=== PATIENT | male | born 1995 | race Caucasian/White ===

== ENCOUNTER 2017-08-16 16:10 | Emergency (ER) | payer MEDICAID ==
[~2017-08-16] VITALS: Ht 167.6 cm; Wt 72.3 kg
[2017-08-16 16:32] VITALS: BP 114/72
--- NOTE | 2017-08-16 16:44 | NUR ---
21/M PRESENT TO ER C/O LT BIG TOE INFECTION x 4 DAYS. AAOX4 WITH EVEN AND STEADY GAIT; LUNGS CLEAR BL; HR EVEN AND REGULAR; PT DENIES ANY FEVER, CP, SOB, OR COUGH AT THIS TIME; PATIENT STATES PAIN OF 9/10 AT THIS TIME; VSS; PATIENT POSITIONED FOR COMFORT; HOB ELEVATED; BEDRAILS UP X2; BED DOWN. ER MD MADE AWARE OF PT STATUS.
[2017-08-16] MEDS ORDERED: IBUPROFEN 800 MG TAB PO ONE (16:50)
[2017-08-16] MEDS ORDERED: LIDOCAINE 1% 500 MG/50 ML VIAL INJ ONE (16:50)
--- NOTE | 2017-08-16 17:18 | NUR ---
REMOVE PARTIAL INGROWN TOE NAIL L BIG TOE BY DANIELLE RODRIGUEZ. PT TOLERATED PROCEDURE WELL.
--- NOTE | 2017-08-16 17:18 | NUR ---
Edna spencer in [facility] - 08/16/17 at 1734 by [email or web address] REMOVE PARTIAL INGROWN TOE NAIL. PA TOLERATED PROCEDURE WELL.
[2017-08-16] MEDS ORDERED: BACITRACIN OINT 500 UNITS/GM PKT TP ONE (17:45)
[2017-08-16] MEDS ORDERED: NEOMYCIN/POLYMYXIN/BACITRACIN 0.9 GM/1 PKT TP ONE (17:52)
--- NOTE | 2017-08-16 18:00 | NUR ---
WOUND CARE DONE BY CHEPE MARVIN.
[2017-08-16 19:00] VITALS: BP 121/66
--- NOTE | 2017-08-16 19:00 | NUR ---
Patient discharged with v/s stable. Written and verbal after care instructions given and explained. Patient alert, oriented and verbalized understanding of instructions. Ambulatory with steady gait. All questions addressed prior to discharge. ID band removed. Patient advised to follow up with PMD. Rx of IBUPROFEN, BACITRACIN & KEFLEX given. Patient educated on indication of medication including possible reaction and side effects. Opportunity to ask questions provided and answered.
== END 2017-08-16 19:00 | disposition home or self-care (01) ==
LOC: MED 16:10
DX: L60.0 Ingrowing nail (principal)
CPT/HCPCS: 11730; 99283; J2001

== ENCOUNTER 2018-10-11 14:25 | Emergency (ER) | payer SELFPAY ==
[~2018-10-11] VITALS: Ht 170.2 cm; Wt 73.5 kg
[2018-10-11 14:32] VITALS: BP 132/71
[2018-10-11] MEDS: NEOMYCIN/POLYMYXIN/BACITRACIN 0.9 GM/1 PKT TP ONE (15:36)
[2018-10-11] MEDS ORDERED: NEOMYCIN/POLYMYXIN/BACITRACIN 0.9 GM/1 PKT TP ONE (15:37)
[2018-10-11] MEDS: IBUPROFEN 800 MG TAB PO ONE (15:37)
[2018-10-11] MEDS: LIDOCAINE 1% 500 MG/50 ML VIAL INJ SCH (15:56)
[2018-10-11 16:01] VITALS: BP 119/65
== END 2018-10-11 16:01 | disposition home or self-care (01) ==
LOC: MED 14:25
DX: L60.0 Ingrowing nail (principal)
CPT/HCPCS: 11730; 99283; J2001